=== PATIENT | female | born 2000 | race Caucasian/White ===

== ENCOUNTER 2018-07-19 01:05 | Emergency (ER) | payer MEDICAID, OTHER ==
[~2018-07-19] VITALS: Ht 152.4 cm; Wt 88.5 kg
[2018-07-19 01:10] VITALS: BP 143/89
--- NOTE | 2018-07-19 01:15 | NUR ---
PT AMBULATED TO BED 5
--- NOTE | 2018-07-19 01:25 | NUR ---
PATIENT IS A 17 Y/O FEMALE WHO PRESENTS TO THE ED C/O SORE THROAT. PT STATES THAT IT STARTED TODAY. PT REPORTS 5/10 ACHING THROAT PAIN THAT DOES NOT RADIATE. PT REPORTS COUGH, DENIES CP, SOB, N/V/D. PT AWAKE AND ALERT, RR EVEN/UNLABORED. PT REPOSITIONED FOR COMFORT, BED IN LOWEST POSITION. ER MD DR. CRUZ NOTIFIED. WILL CONTINUE TO MONITOR.
--- NOTE | 2018-07-19 02:35 | NUR ---
PATIENT RESTING AT THIS TIME. NO SIGNS OF DISTRESS.
[2018-07-19] MEDS ORDERED: KETOROLAC 30 MG/ML VIAL IM ONE (02:45)
[2018-07-19] MEDS ORDERED: DEXAMETHASONE 10 MG/ML VIAL PO ONE (02:45)
[2018-07-19] MEDS ORDERED: DEXAMETHASONE 4 MG/ML VIAL ONE (02:55)
[2018-07-19 03:35] VITALS: BP 137/91
--- NOTE | 2018-07-19 03:35 | NUR ---
Patient discharged with v/s stable. Written and verbal after care instructions given and explained. Patient alert, oriented and verbalized understanding of instructions. Ambulatory with steady gait. All questions addressed prior to discharge. ID band removed. Patient advised to follow up with PMD. Rx of AMOXICILLIN 500MG, TYLENOL WITH CODEINE NO.3 AND NAPROSYN 500MG given. Patient educated on indication of medication including possible reaction and side effects. Opportunity to ask questions provided and answered.
== END 2018-07-19 03:35 | disposition home or self-care (01) ==
LOC: MED 01:05
DX: J02.0 Streptococcal pharyngitis (principal)
CPT/HCPCS: 81002; 81025; 87081; 96372; 99283; J1100; J1885